=== PATIENT | female | born 1975 | race African-American/Black ===

== ENCOUNTER 2016-10-01 12:33 | Emergency (ER) | payer SELFPAY ==
[~2016-10-01 12:33] MED LIST: Iopamidol 370 76% 100 ML VIAL ONE
[2016-10-01] MEDS ORDERED: Sodium Chloride 0.9% 1,000 ML ONE (12:50)
[2016-10-01] MEDS ORDERED: Ondansetron HCl/PF 4 MG/2 ML Vial ONE (12:50)
[2016-10-01 13:14] LABS: Bilirubin Negative (Negative); Blood, Urine Negative (Negative); Clarity Clear (Clear); Glucose, Urine (Dipstick) Negative (Negative); Leukocyte Negative (Negative); Nitrite Negative (Negative); Protein, Urine (Dipstick) Trace mg/dL (Neg-Trace); Specific Gravity, Urine 1.015 (1.005-1.030); pH, Urine 8.5 (5.0-9.0)
[2016-10-01 13:17] LABS: #Basophils 0.2 thou/uL (0.0-0.2); #Eosinphils 0.2 thou/uL (0.0-0.7); #Lymphocytes 2.7 thou/uL (1.20-3.40); #Monocytes 0.5 thou/uL (0.11-0.59); #Neutrophils 3.9 thou/uL (1.40-6.50); %Basophils 2.3 % (0.0-1.0); %Eosinophils 2.3 % (0.0-10.0); %Lymphocytes 36.1 % (21.0-51.0); %Monocytes 6.9 % (0.0-10.0); %Neutrophils 52.4 % (42.0-75.0); Hemoglobin 11.7 g/dL (12.0-16.0); Mean Corpuscular HGB CONC 30.8 g/dL (32.0-36.0); Mean Corpuscular Hemoglobin 26.7 pg (27.0-31.0); Mean Corpuscular Volume 86.7 fl (81.0-99.0); Mean Platelet Volume 6.3 fL (7.4-10.4); Platelet Count 352 thou/uL (130-400); RBC Distribution Width 13.9 % (11.5-14.5); Red Blood Cell (RBC) Count 4.38 mill/uL (4.20-5.40); White Blood Cell (WBC) Count 7.5 thou/uL (4.8-10.8)
[2016-10-01 13:20] LABS: ALT (SGPT) 20 U/L (8-55); AST (SGOT) 14 U/L (5-34); Albumin 3.8 g/dL (3.5-5.0); Alkaline Phosphatase 62 U/L (40-150); Anion Gap 13 mmol/L (10-20); BUN (Urea Nitrogen) 10 mg/dL (7.0-18.7); Bilirubin, Total 0.2 mg/dL (0.2-1.2); Calc. Creatinine Clearance 0 mL/min (70-130); Calcium 9.3 mg/dL (7.8-10.44); Carbon Dioxide 24 mmol/L (22-29); Chloride 106 mmol/L (98-107); Estimated GFR-MDRD Greater than 90; Globulin 3.7 g/dL (2.4-3.5); Glucose 98 mg/dL (70-105); Potassium 4.1 mmol/L (3.5-5.1); Protein, Total 7.5 g/dL (6.0-8.3); Sodium 139 mmol/L (136-145)
--- NOTE | 2016-10-01 13:55 | CT ---
ABDOMEN CT WITH CONTRAST PELVIC CT WITH CONTRAST: Date: 10/01/16 HISTORY: Right-sided abdominal pain since 0300 hours. COMPARISON: None. TECHNIQUE: An abdomen and pelvic CT are performed with IV contrast. Enteric contrast was not administered. Trevon nal reformatted images are submitted for interpretation. FINDINGS: ABDOMEN CT: Lung bases are clear. Visualized aorta has a normal caliber. No retroperitoneal mass, lymphadenopath y, or hematoma. Symmetric attenuation of the psoas muscles. Intra and extrahepatic portal vein is pa tent. Gallbladder is unremarkable. There is appropriate enhancement of the liver, spleen, pancreas, and adrenal glands. Symmetric enhancement of the kidneys. Bilaterally, no obstructive uropathy. No mesenteric mass, lymphadenopathy, free air, or free fluid. Limited evaluation of the alimentary canal due to lack of oral contrast. No definite bowel obstructi on. Normal caliber appendix is noted. Scattered fecal material in nondistended, nondilated colon. PELVIC CT: Uterus and adnexa are unremarkable. No pelvic mass, lymphadenopathy, free air, or free fluid. Urinary bladder is decompressed and unremarkable. No osteoblastic or osteolytic lesions. IMPRESSION: 1. No evidence of bowel obstruction. 2. Normal enhancement of the solid organs. 3. Normal caliber appendix. POS: [facility]
== END 2016-10-01 14:04 | disposition home or self-care (01) ==
LOC: NAV ERS 12:33
DX: R10.9 Unspecified abdominal pain (principal); E86.0 Dehydration; R11.0 Nausea; E66.9 Obesity, unspecified
CPT/HCPCS: 51701; 74177; 80053; 81003; 83605; 85025; 96361; 96374; 96375; A4353; J2270; J2405; J7050

== ENCOUNTER 2017-11-24 11:02 | Emergency (ER) | payer SELFPAY | END 2017-11-24 11:47 | disposition home or self-care (01) | LOC: NAV ERS 11:02 | DX: L03.116 Cellulitis of left lower limb (principal); I10 Essential (primary) hypertension; E66.9 Obesity, unspecified; F17.210 Nicotine dependence, cigarettes, uncomplicated | CPT/HCPCS: 99283 ==

== ENCOUNTER 2018-07-12 01:44 | Emergency (ER) | payer SELFPAY ==
[2018-07-12] MEDS ORDERED: Ondansetron PF 4 MG/2 ML Vial ONE (02:15)
[2018-07-12] MEDS ORDERED: Acetaminophen 325 MG TAB ONE (02:15)
[2018-07-12] MEDS ORDERED: Sodium Chloride 0.9% 1,000 ML ONE (02:15)
[2018-07-12 02:24] LABS: Band 8 % (5-11); Eosinophils 2 % (0-10); Hemoglobin 10.8 g/dL (12.0-16.0); Hypochromia MODERATE=16-30 cells (100X) (0-5/hpf); Lymphocytes 4 % (21-51); MDiff Complete? YES; Mean Corpuscular HGB CONC 29.5 g/dL (32.0-36.0); Mean Corpuscular Hemoglobin 23.4 pg (27.0-31.0); Mean Corpuscular Volume 79.4 fL (78.0-98.0); Mean Platelet Volume 6.3 fL (7.4-10.4); Monocytes 12 % (0-10); Neutrophil 74 % (42-75); Platelet Count 421 thou/uL (130-400); Platelet Morphology Comment Appears Adequate; RBC Distribution Width 15.8 % (11.5-14.5); Red Blood Cell (RBC) Count 4.61 mill/uL (4.20-5.40); White Blood Cell (WBC) Count 13.8 thou/uL (4.8-10.8)
[2018-07-12 02:29] LABS: ALT (SGPT) 33 U/L (8-55); AST (SGOT) 35 U/L (5-34); Albumin 4.2 g/dL (3.5-5.0); Alkaline Phosphatase 64 U/L (40-150); Anion Gap 15 mmol/L (10-20); BUN (Urea Nitrogen) 19 mg/dL (7.0-18.7); Bilirubin, Total 0.4 mg/dL (0.2-1.2); Calc. Creatinine Clearance 0 mL/min (70-130); Carbon Dioxide 19 mmol/L (22-29); Chloride 107 mmol/L (98-107); Estimated GFR-MDRD 68; Glucose 103 mg/dL (70-105); Magnesium 2.2 mg/dL (1.6-2.6); Potassium 3.6 mmol/L (3.5-5.1); Protein, Total 8.2 g/dL (6.0-8.3); Sodium 137 mmol/L (136-145)
[2018-07-12 02:39] LABS: BHCG - Serum Negative (NEGATIVE)
[2018-07-12 02:40] LABS: Pregs Control Bar Appear? YES (CONTROL BAR)
[2018-07-12] MEDS ORDERED: Piperacillin/Tazobactam 3.375 GM VIAL ONE (02:53)
[2018-07-12] MEDS ORDERED: Sodium Chloride 0.9% 100 ML ONE (02:54)
[2018-07-12 03:08] LABS: INR-International Normal Ratio 1.1; Prothrombin Time 13.9 SEC (12.0-14.7)
[2018-07-12] MEDS ORDERED: Sodium Chloride 0.9% 250 ML 500 ML ONE (03:32)
[2018-07-12] MEDS ORDERED: Ketorolac Tromethamine 30 MG/ML VIAL ONE (03:32)
[2018-07-12] MEDS ORDERED: Sodium Chloride 0.9% 2,000 ML ONE (03:33)
[2018-07-12] MEDS ORDERED: Sodium Chloride 0.9% 500 ML ONE (03:43)
--- NOTE | 2018-07-12 07:40 | CT ---
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 Awoke her from sleep. States her leg was not bothering her prior to going to bed. She also states some left lower chest pressure, SOB. Feels feverish / chills. No abd pain or urinary changes. No n/v. 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 Denies HX DVT or PE in past. Denies hormone use, travel or surgery/trauma or immobilization TECHNIQUE: Imaging protocol: Axial computed tomographic angiography images of the chest with intravenous contrast using CT angiography protocol. Coronal reformatted images were created and reviewed. 3D rendering: MIP reconstructed images were created and reviewed. Radiation optimization: All CT scans at this facility use at least one of these dose optimization techniques: automated exposure control; mA and/or kV adjustment per patient size (includes targeted exams where dose is matched to clinical indication); or iterative reconstruction. Contrast material: ISOVUE 370; Contrast volume: 96 ml; Contrast route: IV; COMPARISON: No relevant prior studies available. FINDINGS: Pulmonary arteries: The pulmonary arterial system is suboptimally opacified with I.V. contrast. While no definite central pulmonary emboli are appreciated, pulmonary emboli in the distal lobar and segmental branches cannot be excluded on the basis of this study. Contrast density measurement within the main pulmonary artery is 125 HU. Aorta: Normal caliber thoracic aorta without aneurysm or dissection. Lungs: No alveolar infiltrate. Pleural space: No pleural fluid collections. No pneumothorax. Heart: No pericardial effusion. Mediastinum: Thymic tissue within the anterior superior mediastinum. Lymph nodes: No pathologically enlarged lymph nodes. Bones/joints: Unremarkable. No acute fracture. Soft tissues: Unremarkable. IMPRESSION: 1. Suboptimal contrast opacification of the pulmonary arterial sytem. No central pulmonary emboli are seen but more distal emboli cannot be excluded by this study. 2. No alveolar infiltrate. Thank you for allowing us to participate in the care of your patient. Dictated and Authenticated by: Randall Marques MD 07/12/2018 3:34 AM Central Time ([place] & [place]) FINAL REPORT CT PULMONARY ANGIOGRAM WITH IV CONTRAST AND 3-D POSTPROCESSING: Final report: I agree with the report given by Dr. Randall Marques Transcribed Date/Time: 07/12/2018 7:52 AM
--- NOTE | 2018-07-12 07:50 | RAD ---
XR Chest 1 View Portable HISTORY: Dyspnea COMPARISON: 12/25/2015 FINDINGS: The heart size is normal. The lungs are well expanded without focal areas of consolidation, pneumothorax or pleural effusions. IMPRESSION: No radiographic evidence of acute cardiopulmonary process.
[2018-07-12] MEDS ORDERED: Iopamidol 370 76% 100 ML VIAL ONE (09:00)
== END 2018-07-12 04:06 | disposition short-term general hospital (02) ==
LOC: NAV ERS 01:44
DX: M79.605 Pain in left leg (principal); R50.9 Fever, unspecified; R00.0 Tachycardia, unspecified; F17.210 Nicotine dependence, cigarettes, uncomplicated
CPT/HCPCS: 36415; 71045; 71275; 80053; 83605; 83735; 84484; 84703; 85025; 85379; 85610; 85730; 87040; 93005; 94760; 96361; 96365; 96374; 96375; J1885; J2270; J2405; J2543; J3370; J3490; J7050; Q9967

== ENCOUNTER 2019-01-23 07:45 | Emergency (ER) | payer SELFPAY ==
[2019-01-23] MEDS ORDERED: Acetaminophen 500 MG TAB ONE (08:03)
== END 2019-01-23 08:15 | disposition home or self-care (01) ==
LOC: NAV ERS 07:45
DX: H60.91 Unspecified otitis externa, right ear (principal); E66.9 Obesity, unspecified; F17.210 Nicotine dependence, cigarettes, uncomplicated
CPT/HCPCS: 99282

== ENCOUNTER 2019-08-18 07:40 | Emergency (ER) | payer OTHER, SELFPAY ==
[2019-08-18] MEDS ORDERED: predniSONE 20 MG TAB ONE (08:12)
== END 2019-08-18 08:16 | disposition home or self-care (01) ==
LOC: NAV ERS 07:40
DX: T78.40XA Allergy, unspecified, initial encounter (principal); E66.9 Obesity, unspecified; F17.210 Nicotine dependence, cigarettes, uncomplicated
CPT/HCPCS: 99283; J7512

== ENCOUNTER 2019-08-28 15:44 | Emergency (ER) | payer OTHER ==
[2019-08-29 15:29] LABS: SARS-CoV-2 MS2 Positive; SARS-CoV-2 N Gene Negative; SARS-CoV-2 S Gene Negative; SARS-CoV-2 orf1ab Negative
== END 2019-08-28 16:55 | disposition home or self-care (01) ==
LOC: NAV ERS 15:44
DX: Z20.828 Contact with and (suspected) exposure to other viral communicable diseases (principal); F17.210 Nicotine dependence, cigarettes, uncomplicated; E66.9 Obesity, unspecified
CPT/HCPCS: 87635; 99283; U0003

== ENCOUNTER 2019-11-14 07:50 | Emergency (ER) | payer OTHER | END 2019-11-14 09:30 | disposition short-term general hospital (02) | LOC: NAV ERS 07:50 | DX: M79.662 Pain in left lower leg (principal); R60.0 Localized edema; E66.9 Obesity, unspecified; F17.210 Nicotine dependence, cigarettes, uncomplicated | CPT/HCPCS: 99284 ==

== ENCOUNTER 2024-12-27 16:24 | Emergency (ER) | payer OTHER ==
[2024-12-27] MEDS ORDERED: Tetracaine 0.5% PF 4 ML BOT ONE (16:29)
[2024-12-27] MEDS ORDERED: Fluorescein Opthalmic Strip ONE (16:29)
== END 2024-12-27 17:27 | disposition home or self-care (01) ==
LOC: NAV ERS 16:24
DX: S05.02XA Injury of conjunctiva and corneal abrasion without foreign body, left eye, initial encounter (principal); I10 Essential (primary) hypertension; Z86.718 Personal history of other venous thrombosis and embolism; W44.8XXA Other foreign body entering into or through a natural orifice, initial encounter